=== PATIENT | female | born 1945 | race Caucasian/White ===

== ENCOUNTER 2022-10-22 10:10 | Outpatient (OUT) | payer MEDICARE, MEDICAID, SELFPAY ==
--- NOTE | 2022-10-22 11:16 | CA_ITS ---
Patient: ALISE ENCARNACION Exam Date: 10/22/2022 : 1945 Gender:F Ordering : SHANIQUE PITT Admission #: [id number] Family : Order #: [id number] CLICK HERE TO VIEW EXAM ECHOCARDIOGRAM REPORT PROCEDURE: CA ECHO DOPPLER COMPLETE INDICATIONS: Mitral and Aortic valve stenosis COMPARISON: None. DESCRIPTION: COMPLETE ECHOCARDIOGRAM Real-time transthoracic echocardiography with 2D, M-mode, spectral and color flow Doppler performed. QUALITY: Technical quality was good. LEFT VENTRICLE: Normal chamber size. Normal left ventricular wall thickness. Global left ventricular systolic function is normal. LV EF: Estimated left ventricular ejection fraction is 60-65%. DIASTOLIC: Normal diastolic function. ATRIAL SEPTUM: LEFT ATRIUM: Normal chamber size. RIGHT ATRIUM: Mild dilatation. RIGHT VENTRICLE: Normal chamber size. Normal right ventricular systolic function. TRICUSPID VALVE: Normal mobility and thickness. No stenosis with trivial regurgitation. No evidence of pulmonary hypertension. RVSP 30 mmHg MITRAL VALVE: Normal mobility and thickness. No evidence of mitral valve stenosis. There is no mitral annular calcification. Trivial mitral regurgitation. AORTIC VALVE: Normal trileaflet appearance. Mildly calcified aortic valve. Normal leaflet mobility. No evidence of aortic valve stenosis. No aortic regurgitation. AORTIC ROOT: Normal diameter and appearance. PULMONIC VALVE: Grossly normal. No stenosis. No regurgitation. PERICARDIUM: No evidence of pericardial effusion. IVC: Collapses with inspirations. Normal size. PLEURA: CONCLUSION: 1. Normal left ventricular systolic function. LVEF is estimated at 60 to 65%. 2. Normal right ventricular size and systolic function. 3. Normal diastolic function. 4. No significant valvular dysfunction. 5. Normal right-sided pressures. Adult Echocardiography Procedure Report Left Ventricle LVEDD (3.7 - 5.6 cm): 3.98 cm LVESD (2.2 - 4.0 cm): 2.69 cm LVIVS thickness (0.6 - 1.2 cm): 0.92 cm LVPW thickness (0.5 - 1.0 cm): 0.79 cm e': 0.10 m/s E - e': 7.12 LVOT Max Gradient: 3.19 mm[Hg] LVOT Area (cm2): 0.89 m/s Peak Velocity (LVOT): 0.89 m/s Mean Velocity (LVOT): 0.66 m/s LVOT Diameter 1.81 cm Left Ventricular Ejection Fraction: 60-65 % Left Atrium LA Volume Index (2D A2C): 24.54 ml/m2 Left Atrium Systolic Dimension: 2.93 cm Mitral Valve MV E to A Ratio: 0.91 Mitral Valve A-Wave Peak Velocity: 0.77 m/s Mitral Valve E-Wave Peak Velocity: 0.70 m/s Right Ventricle RV Internal Diastolic Dimension: 3.48 cm Aorta AO Root Diam: 2.48 cm Ascending Ao Diam: 2.45 cm Aortic Valve AoV Area (Peak Barrie): 1.56 cm2, 1.54 cm2 AoV Area (VTI): 1.80 cm2, 1.86 cm2 Peak Velocity(Antegrade Flow): 1.50 m/s, 1.46 m/s Peak Gradient(Antegrade Flow): 8.95 mm[Hg], 8.48 mm[Hg] Mean Velocity(Antegrade Flow): 1.03 m/s, 1.02 m/s Mean Gradient(Antegrade Flow): 4.82 mm[Hg], 4.75 mm[Hg] Velocity Time Integral: 34.18 cm, 36.38 cm Tricuspid Valve Peak Velocity (Regurgitant Flow): 2.61 m/s, 2.40 m/s, 2.39 m/s Pulmonic Valve Peak Velocity: 0.81 m/s Peak Gradient: 2.61 mm[Hg], 2.65 mm[Hg] Right Atrium Right Atrium Systolic Pressure: 34.85 ml, 34.85 ml Dictated by: Kp Neely M.D. on 10/22/2022 at 17:17 Approved by: Kp Neely M.D. on 10/22/2022 at 17:20
== END 2022-10-22 10:11 | disposition home or self-care (01) ==
LOC: CARD 10:16
PROVIDERS: PCP Family Medicine; Visit Provider Nurse Practitioner
DX: I08.0 Rheumatic disorders of both mitral and aortic valves (principal)
CPT/HCPCS: 93306

== ENCOUNTER 2025-02-13 07:21 | Outpatient (OUT) | payer MEDICARE, MEDICAID, SELFPAY ==
--- OUTSIDE RECORDS SUMMARY | 2025-02-13 07:27 | XMS_ITS | Clinical Summary ---
Author Organization [facility] Address [address] [place] [address] Care Team Providers Care Manager Transfer Name Role Phone Kyaw Jorge MD Unavailable [phone] Allergies No known active allergies Medications MedicationSigDispense QuantityRefillsLast FilledStart DateEnd DateStatus acetaminophen (Tylenol) 325 MG tablet Take 650 mg by mouth every 6 (six) hours if needed for mild pain or headaches. Active acetaminophen (Tylenol Extra Strength) 500 MG tablet every 6 (six) hours.Active albuterol (2.5 MG/3ML) 0.083% nebulizer solution 07/21/2022ctive ALPRAZolam (Xanax) 0.5 MG tablet 1 tablet Orally AMActive ascorbic acid (Vitamin C) 500 MG tablet 1 tablet Orally at 7amActive aspirin 325 MG tablet 1 tablet Orally at 7 amActive benzonatate (Tessalon) 100 MG capsule every 8 (eight) hours.Active Calcium Citrate-Vitamin D 315-5 MG-MCG tablet Take 2 tablets by mouth in the morning and 2 tablets in the evening.Active Calcium Polycarbophil (fiber) 625 MG tablet every 8 (eight) hours.Active citalopram (CeleXA) 20 MG tablet Take 20 mg by mouth at bedtime.09/17/2021ctive diclofenac sodium 1 % gel 06/18/2022ctive Flonase Allergy Relief 50 MCG/ACT nasal spray 1 (one) time each day at the same time.Active ipratropium (Atrovent) 0.03 % nasal spray every 12 (twelve) hours.Active ipratropium-albuterol (Duo-Neb) 0.5-2.5 mg/3 mL nebulizer solution every 6 (six) hours.Active linaCLOtide (Linzess) 145 MCG capsule 1 (one) time each day at the same time.Active loratadine (Claritin) 10 MG tablet Take 10 mg by mouth in the morning.Active lurasidone (Latuda) 20 MG tablet Take 20 mg by mouth in the morning.09/17/2021ctive memantine (Namenda) 10 MG tablet Take 10 mg by mouth at bedtime.Active polyethylene glycol, PEG, 3350 (MiraLax) 17 GM/SCOOP powder 1 (one) time each day at the same time.09/03/2021ctive iron polysaccharides (Nu-Iron,Niferex) 150 MG capsule Take 150 mg by mouth in the morning.Active traZODone (Desyrel) 50 MG tablet 1 Tablet Orally at 7pmActive triamcinolone (Kenalog) 0.1 % cream 04/30/2022ctive tacrolimus (Protopic) 0.1 % ointment Indications:Other atopic dermatitisApply to affected areas on arms bid prn when flared, 30 day supply 60 g 111ctive Active Problems ProblemNoted DateDiagnosed UkygDfvasiskc96/07/2023ortic valve regurgitation 08/26/2022hronic stexhgoh26/07/9318Xifruivqmgxa63/07/2023ry eye syndrome 08/26/2022History of total knee phzjgvneebu58/07/1208Xriofyjhfeeyop38/07/2023 Nonrheumatic aortic (valve) whmivqqo13/07/3379Rkpdwlerkcdfzk84/07/2023 Osteoarthritis of both knees08/26/2022Seasonal usjvruwel48/07/2023hronic kidney qjvrqar1008/26/2022rthritis of left knee09/15/2021ortic valve misobnem55/31/2021 Overview (08/26/2022): Last Assessment & Plan: -was noted in 2011 but recent echo from 07/2021 does not show any concern for stenosis -stable at this time Unspecified disorder of psychological nteingoahnc36/30/2021Major depression, single vzpuvfd8002/03/2021Vitamin D /15/2021bnormal gait01/30/2021 Dementia with behavioral fewzsxqbpsz69/18/2021evelopmental delay01/06/2021 Chronic renal failure jbodrgpl18/18/2021RSV (acute bronchiolitis due to respiratory syncytial virus)1Presence of cardiac cmrujgsuh20/24/2019 Overview (08/26/2022): Last Assessment & Plan: -had device check today, no concerns per [employer] rep but will need final review per Dr. Shaikh -site appears normal with no concerns Dgyyyxr0104/12/2018Anxiety jjgsgujk37/30/2015Depressive mhawzglk06/31/2012 Family History RelationNameStatusCommentsFatherDeceasedMotherDeceased Social History Tobacco UseTypesPacks/DayYears UsedDateSmoking Tobacco: NeverSmokeless Tobacco: Never Tobacco Cessation:Counseling Given: Not Answered Alcohol UseStandard Drinks/WeekCommentsNot Currently0 (1 standard drink = 0.6 oz pure alcohol)1-2 drinks, monthly or less. caffeine intake: 2-3 cups per day. CommentsUnknownSex and Gender InformationValueDate RecordedSex Assigned at BirthNot on fileLegal PvdMnpmhh07/15/2023 7:09 PM EDTGender IdentityNot on fileSexual OrientationNot on file Last Filed Vital Signs Vital SignReadingTime TakenCommentsBlood Dliiohzb219/7109 12:12 PM EDT Jbsgz306112/07/2022 12:12 PM UBANcieorlvnpr88.5 ??C (97.7 ??F)12/07/2022 12:12 PM EDTRespiratory Essz167612/07/2022 12:12 PM EDTOxygen Uawdplgrqc21%12/07/2022 12:12 PM EDTInhaled Oxygen Concentration--Uvmmcl92.3 kg (188 lb)12/07/2022 12:12 PM NYFHtzjxg344.1 cm (5' 5 )08/24/2022 10:00 AM EDTBody Mass Index31.2806 10:00 AM EDT Plan of Treatment DateTypeDepartmentCare Team (Latest Contact Info)Glglhwpexdh57/23/2027 9:00 AM ESTOffice Visit [facility] [address] [place] [address] Avinash Oakes, AMANDA [address] [place] [address] Health MaintenanceDue DateLast DoneCommentsCOVID-19 Vaccine (2024- season) 508/04/2021, 01/28/2021, 04/29/2020, Additional history existsInfluenza Vaccine (#1)51, 01/08/2021, 01/03/2020, Additional history existsPneumococcal Vaccine: 65+ IqkrlAwwjpfylv60/07/2023, 04/28/2022, 02/07/2021 [place] [address] Care Teams Team MemberRelationshipSpecialtyStart DateEnd Date Kyaw Jorge MD [address] [facility] [address] [place] [address] [facility] 04/28/24
--- OUTSIDE RECORDS SUMMARY | 2025-02-13 07:27 | XMS_ITS | Clinical Summary ---
Author Organization [facility] Address [address] [place] [address] Care Team Providers Care Agriculture Instructor Name Role Phone Grace Heaton MD Primary Care Provider [phone] Allergies No known active allergies Medications MedicationSigDispense QuantityRefillsLast FilledStart DateEnd DateStatus loratadine (Claritin) 10 mg tablet in the morning.Active memantine (Namenda) 10 mg tablet 02/13/2022ctive albuterol 2.5 mg /3 mL (0.083 %) nebulizer solution 07/21/2022ctive fluticasone (Flonase) 50 mcg/actuation nasal spray 08/09/2022ctive traZODone (Desyrel) 50 mg tablet Take 1 tablet by mouth in the morning.Active calcium citrate-vitamin D3 (Citracal+D) 315 mg-5 mcg (200 unit) tablet Take 2 tablets by mouth in the morning.Active citalopram (CeleXA) 10 mg tablet Take 10 mg by mouth in the morning.Active docusate sodium (Colace) 100 mg capsule Take 100 mg by mouth in the morning and at bedtime.Active metoprolol succinate XL (Toprol-XL) 50 mg 24 hr tablet Indications:NSVT (nonsustained ventricular tachycardia) (CMS/HCC)Take 1 tablet (50 mg) by mouth in the morning. Do not crush or chew. 90 tablet ctive folic acid (Folvite) 400 mcg tablet 12/27/2023ctive acetaminophen (Tylenol) 500 mg tablet Take 500 mg by mouth every 4 (four) hours if needed.5Active cholecalciferol (Vitamin D-3) 50 MCG (2000 UT) tablet Take 2,000 Units by mouth in the morning.5Active cholecalciferol (Vitamin D-3) 50 MCG (1999 UT) tablet Take 2,000 Units by mouth in the morning.5Active ipratropium-albuteroL (Duo-Neb) 0.5-2.5 mg/3 mL nebulizer solution Take 3 mL by nebulization in the morning, afternoon, and at bedtime.04/13/2024 Active lidocaine adhesive patch,medicated patch Apply 1 patch topically in the morning.5Active Active Problems ProblemNoted DateDiagnosed RhczMbhacieok43ortic valve trwjphiaaeaav16hronic kgidnnmg78 Ldyopzmkvqvo89ry eye pepfrmhb65History of total knee aojjvkyghox91Hyperlipidemia Seasonal aythrklbb58rthritis of left knee09/15/2021ortic valve iwtdxggk24/31/2021 Assessment & Plan (03/10/2022 8:49 AM EST): -was noted in 2011 but recent echo from 07/2021 does not show any concern for stenosis -stable at this time Unspecified disorder of psychological fsnzpnhgnwa68/30/202103/02/2024Major depression, single tytqfoo6902/03/20212834Yczrdmq25/15/2021Osteoarthritis of right knee02/03/2021sychotic olbeexft27/15/2021Generalized anxiety xrmxlhyn34/15/2021 Vitamin D jzjyxghzuj93/15/2021bnormal gait01/30/2021ementia with behavioral wraymsqsehu50/18/2021evelopmental delay01/06/2021SV (acute bronchiolitis due to respiratory syncytial virus)1Primary aszudnlnugivhl31/02/2021ardiac pacemaker in situ07/13/2018 Assessment & Plan (03/10/2022 8:49 AM EST): -had device check today, no concerns per [employer] rep but will need final review per Dr. Shaikh -site appears normal with no concerns Stage 3 chronic kidney ditymgq0304/12/2018 Assessment & Plan (03/10/2022 8:51 AM EST): Renal condition is stable -gfr and CR/BUN were normal on 12/2021 labs -follow with PCP Qnxhrlf8504/12/2018Nonrheumatic aortic (valve) ymuajrdk42/22/2019Mild intellectual qumpazvyhu82/31/2012Depressive tzbhvynj82/31/2012nxiety state05/07/2009 Encounters DateTypeDepartmentCare TbxzMzxucgypqfq73/05/2025 1:00 PM ESTOffice Visit [facility] [address] [place] [address] Daniella Crabtree CNP Aortic valve disorder (Primary Dx); SSS (sick sinus syndrome) (CMS/HCC); Cardiac pacemaker in situ; NSVT (nonsustained ventricular tachycardia) (CMS/HCC); Biventricular cardiac pacemaker in situ; Stage 3 chronic kidney disease, unspecified whether stage 3a or 3b CKD (CMS/HCC) 01/19/2025 10:10 AM EDTAncillary Procedure [facility] [address] [place] [phone] Adjustment and management of cardiac nzsnuyodv48/28/2025 1:45 PM EDTAncillary Procedure [facility] [address] [place] [address] Encounter for implantable defibrillator reprogramming or check01/16/2025Orders Only [facility] [address] [place] [address] Kael Shaikh MD from Last 3 Months Family History RelationNameStatusCommentsFatherDeceasedMotherDeceased Social History Tobacco UseTypesPacks/DayYears UsedDateSmoking Tobacco: NeverSmokeless Tobacco: Never Tobacco Cessation:Counseling Given: Not Answered Alcohol UseStandard Drinks/WeekCommentsNot Currently0 (1 standard drink = 0.6 oz pure alcohol)UT Safety & EnvironmentAnswerDate RecordedFear of Current or Ex-PartnerNot on file05/13/2023Emotionally AbusedNot on file05/13/2023hysically AbusedNot on file05/13/2023Sexually AbusedNot on file05/13/2023hysically or Sexually AbusedNot on file05/13/2023CommentsUnknownSex and Gender InformationValueDate RecordedSex Assigned at BirthNot on fileLegal SexFemale 09/17/2021 10:15 PM EDTGender IdentityChoose not to hxypjrla02/07/2025 9:54 PM EDTSexual OrientationChoose not to zppdvhyj25/07/2025 9:54 PM EDT Last Filed Vital Signs Vital SignReadingTime TakenCommentsBlood Tkxxnpcb02/5501/24/2025 12:57 PM EST Fmtxx832101/24/2025 12:57 PM ESTTemperature--Respiratory Fdbw795104/16/2023 10:17 AM ESTOxygen Imfognkrxt10%01/24/2025 12:57 PM ESTInhaled Oxygen Concentration-- Sngenq64.4 kg (197 lb)01/24/2025 12:57 PM LSMRvslhs734.6 cm (5' 6 )01/24/2025 12:57 PM ESTBody Mass Index31.8103/26/2024 12:57 PM EST Plan of Treatment Health MaintenanceDue DateLast DoneCommentsMedicare Annual Wellness (AWV) 4Depression Xlkzghkze57/18/1956Adult Pqsfmao3604/08/1965Zoster Vaccines (1 of 2)1993Fall Risk Phimcjgmx52/18/2009COVID-19 Vaccine ( season)508/04/2021, 01/28/2021, 04/29/2020, Additional history exists Influenza Vaccine (#1)51, 01/08/2021, 01/03/2020, Additional history existsPneumococcal Vaccine: 50+ DcdqoXonsdvzmu46/07/2023, 02/07/2021HIB VaccinesAged OutNo longer eligible based on patient's age to complete this topic HPV VaccinesAged OutNo longer eligible based on patient's age to complete this topicIPV VaccinesAged OutNo longer eligible based on patient's age to complete this topicMeningococcal B VaccineAged OutNo longer eligible based on patient's age to complete this topicMeningococcal VaccineAged OutNo longer eligible based on patient's age to complete this topicRotavirus VaccinesAged OutNo longer eligible based on patient's age to complete this topic Procedures Procedure NamePriorityDate/TimeAssociated DiagnosisCommentsCARDIAC DEVICE CHECK CHECK - URCWKDXsxlhuo71/30/2025 10:27 AM EDT Adjustment and management of cardiac pacemaker CARDIAC DEVICE CHECK - IN CLINIC - PACEMAKER DUAL CHAMBER W/ PROGRoutine 01/17/2025 10:54 AM EDT Encounter for implantable defibrillator reprogramming or check CARDIAC DEVICE CHECK - REMOTE - QPEHLNLDFLyhqmvc81/28/2025 12:00 AM EDTfrom Last 3 Months Results * CARDIAC DEVICE CHECK - REMOTE - PACEMAKER (01/18/2025 10:27 AM EDT)Specimen (Source)Anatomical Location / LateralityCollection Method / VolumeCollection TimeReceived Time Narrative Authorizing ProviderResult TypeResult StatusPaul Neel MDCV IMPLANTABLE CARDIAC DEVICE PROCEDURESFinal ResultPerforming OrganizationAddressCity/State/ZIP Code Phone Number CPACS * CARDIAC DEVICE CHECK - IN CLINIC - PACEMAKER DUAL CHAMBER W/ PROG (01/17/2025 10:54 AM EDT)Anatomical RegionLateralityModalityOtherSpecimen (Source) Anatomical Location / LateralityCollection Method / VolumeCollection Time Received Time Narrative 01/22/2025 5:29 AM EST By using the attestations below, the signing clinician agrees that I have read and verify that the documentation has been personally reviewed by me and ensure that the documentation accurately reflects the encounter. Routine EP device follow up as per schedule. Please see attached note Authorizing ProviderResult TypeResult StatusPaul Neel MDCV IMPLANTABLE CARDIAC DEVICE PROCEDURESFinal Result * Cardiac device check - Remote pacemaker (01/16/2025 12:00 AM EDT)Anatomical RegionLateralityModalityOtherSpecimen (Source)Anatomical Location / Laterality Collection Method / VolumeCollection TimeReceived Time01/16/2025 Narrative Authorizing ProviderResult TypeResult StatusPazelda Shaikh MDCV IMPLANTABLE CARDIAC DEVICE PROCEDURESFinal Result from Last 3 [place] [address] Care Teams Team MemberRelationshipSpecialtyStart DateEnd Date Grace Heaton MD [address] [facility] [address] [place] [address] PCP - GeneralInternal Matjutsf88/22/23
--- OUTSIDE RECORDS SUMMARY | 2025-02-13 07:27 | XMS_ITS | Clinical Summary ---
Author Organization [employer] [facility] Address [id number] [address] [place] [address] Care Team Providers Care Model Builder Display Name Role Phone Norma Leon MD Primary Care Provider [phone] Allergies No known active allergies Medications MedicationSigDispense QuantityRefillsLast FilledStart DateEnd DateStatus ascorbic acid (VITAMIN C) 500 mg tablet Take 500 mg by mouth daily.Active calcium citrate-vitamin D3 (CITRACAL+D) 315-200 mg-units per tablet Take 2 tablets by mouth 2 (two) times a day.Active fluticasone propionate (FLONASE) 50 mcg/actuation nasal spray Administer 1 spray into each nostril daily.Active loratadine (CLARITIN) 10 mg tablet Take 10 mg by mouth daily.Active memantine (NAMENDA) 10 mg tablet Take 10 mg by mouth nightly.Active traZODone (DESYREL) 50 mg tablet Take 50 mg by mouth nightly.Active peg 400-propylene glycol (Systane GeL) 0.4-0.3 % drops,gel Administer 1 drop to both eyes 4 (four) times a day as needed (dry eyes). 01/03/2021ctive benzonatate (TESSALON) 100 mg capsule Take 1 capsule (100 mg total) by mouth 3 (three) times a day as needed for cough. 21 capsule 01/03/2021ctive ipratropium-albuteroL (DUO-NEB) 0.5 mg-3 mg(2.5 mg base)/3 mL nebulizer Indications:RSV (acute bronchiolitis due to respiratory syncytial virus)Inhale 3 mL by nebulization 4 (four) times a day as needed for wheezing.01/03/2021ctive Additional Information Patient not taking.Reported on 09/16/2021 citalopram (CeleXA) 40 mg tablet Take 0.5 tablets (20 mg total) by mouth nightly. 28 tablet 09/15/2021ctive polysaccharide iron complex (NIFEREX) 150 mg iron capsule Take 150 mg by mouth in the morning.Active citalopram (CeleXA) 20 mg tablet Take 1 tablet (20 mg total) by mouth nightly. 30 tablet 09/17/2021ctive lurasidone (LATUDA) 20 mg tablet Take 1 tablet (20 mg total) by mouth daily. 30 tablet 09/17/2021ctive Active Problems ProblemNoted DateDiagnosed DateArthritis of left knee2RSV (acute bronchiolitis due to respiratory syncytial virus)12/26/2020 Family History Medical HistoryRelationNameCommentsNo Known ProblemsFatherNo Known Problems MotherRelationNameStatusCommentsFatherDeceasedMotherDeceased Social History Tobacco UseTypesPacks/DayYears UsedDateSmoking Tobacco: NeverSmokeless Tobacco: NeverAlcohol UseStandard Drinks/WeekCommentsYes0 (1 standard drink = 0.6 oz pure alcohol)occasionalChildcareAnswerDate SikdihvmRjjmlhwzwNymaoqh18/06/2019 EmploymentAnswerDate YxbbrqtnBqqdjkxxzxPcrkpwn87/06/2019Purpose - LifeAnswerDate RecordedPurpose and direction in lpzfYunrmvz25/11/2021CommentsNoSex and Gender InformationValueDate RecordedSex Assigned at BirthNot on fileLegal Sex Pcitjf6210/25/2014 11:52 AM EDTGender IdentityNot on fileSexual OrientationNot on file Last Filed Vital Signs Vital SignReadingTime TakenCommentsBlood Swwxnaru325/59009/17/2021 7:00 AM EDT Tclgj097409/17/2021 7:00 AM RFPLpgjjaltgew93.9 ??C (98.4 ??F)09/17/2021 7:00 AM EDTRespiratory Ziiq373109/17/2021 7:00 AM EDTOxygen Roacszolrd95%09/17/2021 7:00 AM EDTInhaled Oxygen Concentration--Nzvegg12.9 kg (213 lb 10 oz)09/16/2021 12:03 PM CUBGvgyll692.6 cm (5' 5.98 )09/16/2021 12:03 PM EDTBody Mass Index34.5 09/16/2021 12:03 PM EDT Plan of Treatment Health MaintenanceDue DateLast DoneCommentsDepression Ijwsoqcep62/18/1956Tobacco Eypieblyy83/18/1956DTaP,Tdap and Td Vaccines (1 - Tdap)1962Zoster (Shingles) Vaccine (1 of 2)1993Fall Risk Koduegega85/18/2009RSV ( or age 60+ yrs) (1 - 1-dose 75+ series)2018COVID-19 Vaccine ( - season)/11/2020, 04/29/2020, 04/01/2020, Additional history exists Influenza Rorhbur82/, 01/03/2020, 12/29/2019, Additional history exists Goals GoalPatient Goal TypeAssociated ProblemsRecent ProgressPatient-Stated?Author ECF return Karolyn Matos LSW Note: Evaluation of progress towards goal: Return to [facility] where pt resides in LTC. Medical Devices ImplantedTypeAreaManufacturerDevice IdentifierShelf Expiration DateModel / Serial / LotCement Bn Bio 40gm Rpl [id number] - Sna - [id number] Implanted:Qty: 2 on 09/16/2021 by Kp Mcfarland Jr[facility] [id number] / NA / [id number] Ptlr 32mm Persona Alply Kn Strl Lf - Sna - [id number] Implanted:Qty: 1 on 09/16/2021 by Kp [facility]farland Jr[facility] ImplantZimmer [id number] / NA / [id number] Fem D Kn Rt Lpsflx Gndr Alecia? Nxgn Cocr Rpl [id number] - Sna - [id number] Implanted:Qty: 1 on 09/16/2021 by Kp Mcfarland Jr., DO at [facility] ImplantRight: KneeZimmer Awifzo0706/16/2030 [id number] / NA / [id number] [facility] 5-6 C-D 12mm Kn Fx Brng Prlng Nxgn Lpsflx Strl Rpl [id number] + [id number] - Sna - [id number] Implanted:Qty: 1 on 09/16/2021 by Kp Mcfarland Jr., DO at [facility] ImplantRight: KneeZimmer Vwyrtp8701/19/[id number] / NA / [id number]-7/17/2019 Implanted:07/06/2018 (Quantity not on file)PacemakerChestMEDTRONIC USAPlate Tib 39b13fq Nxgn Kn Cmnt Mdlr Stm Prect 5 Tiv Pmma Rpl [id number] + [id number] - Sna - [id number] Implanted:Qty: 1 on 09/16/2021 by Kp Mcfarland Jr., [facility] KneeZimmer Ysycyh0010/05/[id number] / NA / [id number]my IdentifierShelf Expiration DateModel / Serial / LotScrew Gd 48mm Qd-Spr Hex Hd Mis Strl - Sna - [id number] Explanted:Qty: 1 on 09/16/2021 by Kp Mcfarland Jr., [facility]: KneeZimmer [id number] / NA / [id number] Gd 48mm Qd-Spr Hex Hd Mis Strl - Sna - [id number] Explanted:Qty: 1 on 09/16/2021 by Kp Mcfarland Jr., DO at [facility]: KneeZimmer [id number] / NA / [id number] Bn 35mm 6.5mm St Hip Actb Trlg Strl Rpl [id number] + [id number] + 32 - Sna - [id number] Explanted:Qty: 1 on 09/16/2021 by Kp Mcfarland Jr., DO at [facility]: KneeZimmer [id number] / NA / [id number] Bn 35mm 6.5mm St Hip Actb Trlg Strl Rpl [id number] + [id number] + 32 - Sna - [id number] Explanted:Qty: 1 on 09/16/2021 by Kp Mcfarland Jr., DO at [facility]: KneeZimmer [id number] / NA / [id number] Insurance * Guarantor: Carmen FarooqAccosarath TypeRelation to PatientDate of PhoneBilling AddressPersonal/YaxlkzCfup22/18/1946 [phone] (Work) [address] [address] Advance Directives * Full Code (Latest Code Status on File) Date ActivatedDate InactivatedComments09/16/2021 12:18 PM09/17/2021 5:30 PM * Full Code Date ActivatedDate EaufmthaljjHxtkgfrg10/8/2021 11:12 AM01/03/2021 2:31 PM NameRelationshipHealthcare Agent RelationshipCommunicationJeolivia Chandler Giveealth Care Agent* Care Teams Team MemberRelationshipSpecialtyStart DateEnd Date Norma Leon MD [address] [place] [address] PCP - GeneralFamily Medicine09/11/21
--- NOTE | 2025-02-13 08:00 | CA_ITS ---
Patient Name: ALISE ENCARNACION MR#: [id number] : 1945 Exam Date: 02/13/2025 Ordering Doctor: SHERMAN DEVLIN CNP ECHOCARDIOGRAM REPORT PROCEDURE: CA ECHO DOPPLER COMPLETE INDICATIONS: Aortic valve disorder, SSS w/Pacemaker COMPARISON: None. DESCRIPTION: COMPLETE ECHOCARDIOGRAM Real-time transthoracic echocardiography with 2D, M-mode, spectral and color flow Doppler performed. QUALITY: Technical quality was good. LEFT VENTRICLE: Normal chamber size. Normal left ventricular wall thickness. Estimated left ventricular ejection fraction is 65%. LV EF: Normal left ventricular ejection fraction, (>55%). DIASTOLIC: Normal diastolic function. ATRIAL SEPTUM: Visually appears intact. LEFT ATRIUM: Normal chamber size. RIGHT ATRIUM: Normal chamber size. RIGHT VENTRICLE: Normal chamber size. Normal right ventricular systolic function. Pacer wire present. TRICUSPID VALVE: Normal mobility and thickness. No stenosis with mild regurgitation. No evidence of pulmonary hypertension. RVSP 31 mmHg MITRAL VALVE: Normal mobility and thickness. No evidence of mitral valve stenosis. There is no mitral annular calcification. Trivial mitral regurgitation. AORTIC VALVE: Normal trileaflet appearance. Mildly calcified aortic valve. Normal leaflet mobility. No evidence of aortic valve stenosis. Vmax 1.46 m/s. No aortic regurgitation. AORTIC ROOT: Normal diameter and appearance, measuring 3.0 cm. PULMONIC VALVE: Normal thickness and mobility. No stenosis. No regurgitation. PERICARDIUM: No evidence of pericardial effusion. IVC: Collapses with inspiration. IVC is normal in size. PLEURA: CONCLUSION: 1. Normal ventricular size and systolic function. Estimated LVEF is 65%. 2. Normal diastolic function. 3. Mildly calcified aortic valve with no stenosis or regurgitation. 4. No significant valvular dysfunction. 5. Normal right-sided pressures. Adult Echocardiography Procedure Report Left Ventricle LVEDD (3.7 - 5.6 cm): 3.96 cm LVESD (2.2 - 4.0 cm): 2.86 cm LVIVS thickness (0.6 - 1.2 cm): 0.92 cm LVPW thickness (0.5 - 1.0 cm): 0.73 cm e': 0.10 m/s E - e': 7.17 LVOT Max Gradient: 2.85 mm[Hg] LVOT Area (cm2): 0.84 m/s Peak Velocity (LVOT): 0.84 m/s Mean Velocity (LVOT): 0.56 m/s LVOT Diameter 1.80 cm Left Ventricular Ejection Fraction: 65 % Left Atrium LA Volume Index (2D A2C): 23.11 ml/m2 Left Atrium Systolic Dimension: 2.87 cm Mitral Valve MV E to A Ratio: 0.90 Mitral Valve A-Wave Peak Velocity: 0.78 m/s Mitral Valve E-Wave Peak Velocity: 0.70 m/s Right Ventricle Aorta AO Root Diam: 3.02 cm Aortic Valve AoV Area (Peak Barrie): 1.48 cm2, 1.48 cm2 AoV Area (VTI): 1.53 cm2, 1.70 cm2 Peak Velocity(Antegrade Flow): 1.46 m/s, 1.37 m/s, 1.36 m/s Peak Gradient(Antegrade Flow): 8.51 mm[Hg], 7.56 mm[Hg], 7.35 mm[Hg] Mean Velocity(Antegrade Flow): 0.97 m/s, 0.80 m/s, 0.82 m/s Mean Gradient(Antegrade Flow): 4.42 mm[Hg], 3.22 mm[Hg], 3.21 mm[Hg] Velocity Time Integral: 31.29 cm, 34.79 cm, 33.25 cm Tricuspid Valve Peak Velocity (Regurgitant Flow): 2.77 m/s, 2.66 m/s Pulmonic Valve Mean Gradient: 1.80 mm[Hg] Mean Velocity: 0.63 m/s Peak Velocity: 0.96 m/s Peak Gradient: 3.68 mm[Hg] Right Atrium Right Atrium Systolic Pressure: 41.03 ml, 41.03 ml Dictated by: Kp Neely M.D. on 02/13/2025 at 21:21 Approved by: Kp Neely M.D. on 02/13/2025 at 21:25
== END 2025-02-13 07:22 | disposition home or self-care (01) ==
PROVIDERS: PCP Family Medicine; Visit Provider Nurse Practitioner Family
DX: I35.9 Nonrheumatic aortic valve disorder, unspecified (principal); I49.5 Sick sinus syndrome; Z95.0 Presence of cardiac pacemaker; I47.29 Other ventricular tachycardia
CPT/HCPCS: 93306